=== PATIENT | male | born 1965 | race African-American/Black ===

== ENCOUNTER 2022-08-02 16:37 | Inpatient (IN) | payer OTHER ==
[2022-08-02 17:11] VITALS: BMI 24.4
[2022-08-02] MEDS ORDERED: NICOTINE 10 MG CARTRIDGE (INHALER) IH PRN (20:26)
[2022-08-02] MEDS ORDERED: BENZOCAINE/MENTHOL (CHLORASEPTIC ) LOZENGE MM PRN (20:26)
[2022-08-02] MEDS ORDERED: METHOCARBAMOL 500 MG TABLET PO PRN (20:26)
[2022-08-02] MEDS ORDERED: BISMUTH SUBSALICYLATE 524 MG/30 ML PO PRN (20:26)
[2022-08-02] MEDS ORDERED: NALOXONE HCL (KLOXXADO) 8 MG SPRAY NS PRN (20:26)
[2022-08-02] MEDS ORDERED: MAGNESIUM HYDROX 2400MG/30ML ORAL SUSPENSION 30 ML CUP PO PRN (20:26)
[2022-08-02] MEDS ORDERED: LOPERAMIDE HCL 2 MG CAPSULE PO PRN (20:26)
[2022-08-02] MEDS ORDERED: MAG HYDROX/AL HYDROX/SIMETH 30 ML UNIT-DOSE CUP PO PRN (20:26)
[2022-08-02] MEDS ORDERED: POLYETHYLENE GLYCOL (HEALTHYLAX) 3350 17 GM PACKET PO PRN (20:26)
[2022-08-02] MEDS ORDERED: IBUPROFEN 600 MG TABLET (FP) PO PRN (20:26)
[2022-08-02] MEDS ORDERED: ACETAMINOPHEN 325 MG TABLET (FP) PO PRN ×2 (20:26)
[2022-08-02] MEDS ORDERED: IBUPROFEN 400 MG TABLET (FP) PO PRN (20:26)
[2022-08-02] MEDS ORDERED: DICYCLOMINE HCL 10 MG CAPSULE PO PRN (20:26)
[2022-08-02] MEDS ORDERED: ONDANSETRON *ODT* 4 MG TABLET SL PRN (20:26)
[2022-08-02] MEDS ORDERED: chlordiazePOXIDE HCL 25 MG CAPSULE PO PRN (20:29)
[2022-08-02] MEDS ORDERED: chlordiazePOXIDE HCL 25 MG CAPSULE ONE (22:42)
[2022-08-02] MEDS ORDERED: MELATONIN 5 MG TABLETS ONE (22:43)
[2022-08-02] MEDS: MELATONIN 5 MG TABLETS PO SCH (22:48)
[2022-08-03] MEDS ORDERED: chlordiazePOXIDE HCL 25 MG CAPSULE ONE (00:22)
[2022-08-03] MEDS: chlordiazePOXIDE HCL 25 MG CAPSULE PO SCH ×5 (00:27→22:32)
[2022-08-03] MEDS: THIAMINE HCL 100 MG TABLET (FP) PO SCH ×2 (00:28→22:32)
[2022-08-03] MEDS: PRENATAL VITAMINS W/ FOLIC ACID TABLET (FP) PO SCH (10:48)
[2022-08-03] MEDS: NICOTINE 14 MG/24 HOURS TOPICAL PATCH TD SCH (10:50)
[2022-08-03 11:06] LABS: BLOOD UREA NITROGEN 10.2 mg/dL (7-18); CALCIUM 8.5 mg/dL (8.5-10.1)
[2022-08-03 11:07] LABS: HEMATOCRIT 40.6 % (35.4-49); HEMOGLOBIN 13.5 GM/dL (11.7-16.9); MCH 32.6 pg (25.7-33.7); MCHC 33.3 g/dl (32.0-35.9); MEAN CELL VOLUME 97.9 fl (80-96); MEAN PLT VOLUME 7.9 fl (7.5-11.1); PLATELET COUNT 249 10^3/uL (134-434); RBC 4.15 M/mm3 (4.00-5.60); RDW 15.4 % (11.9-15.9); WHITE BLOOD COUNT 3.8 K/mm3 (4.0-10.0)
[2022-08-03 11:11] LABS: BILIRUBIN,TOTAL 0.5 mg/dL (0.2-1); TOT PROT 6.5 g/dl (6.4-8.2)
[2022-08-03] MEDS: MELATONIN 5 MG TABLETS PO SCH (22:32)
[2022-08-04] MEDS: chlordiazePOXIDE HCL 25 MG CAPSULE PO SCH ×4 (05:45→22:56)
[2022-08-04] MEDS: PRENATAL VITAMINS W/ FOLIC ACID TABLET (FP) PO SCH (10:35)
[2022-08-04] MEDS: NICOTINE 14 MG/24 HOURS TOPICAL PATCH TD SCH (10:36)
[2022-08-04] MEDS: THIAMINE HCL 100 MG TABLET (FP) PO SCH (22:55)
[2022-08-04] MEDS: MELATONIN 5 MG TABLETS PO SCH (22:55)
[2022-08-05] MEDS ORDERED: chlordiazePOXIDE HCL 10 MG CAPSULE PO PRN
[2022-08-05] MEDS: chlordiazePOXIDE HCL 10 MG CAPSULE PO SCH ×4 (05:42→23:01)
[2022-08-05] MEDS: PRENATAL VITAMINS W/ FOLIC ACID TABLET (FP) PO SCH (10:30)
[2022-08-05] MEDS: NICOTINE 14 MG/24 HOURS TOPICAL PATCH TD SCH (10:30)
[2022-08-05] MEDS: MELATONIN 5 MG TABLETS PO SCH ×2 (23:00→23:05)
[2022-08-05] MEDS: THIAMINE HCL 100 MG TABLET (FP) PO SCH ×2 (23:01→23:05)
[2022-08-05] MEDS: chlordiazePOXIDE HCL 25 MG CAPSULE PO SCH (23:08)
[2022-08-06] MEDS: chlordiazePOXIDE HCL 10 MG CAPSULE PO SCH ×2 (05:36→18:12)
[2022-08-06] MEDS: NICOTINE 14 MG/24 HOURS TOPICAL PATCH TD SCH (10:14)
[2022-08-06] MEDS: PRENATAL VITAMINS W/ FOLIC ACID TABLET (FP) PO SCH (10:14)
[2022-08-06] MEDS: THIAMINE HCL 100 MG TABLET (FP) PO SCH (22:44)
[2022-08-06] MEDS: MELATONIN 5 MG TABLETS PO SCH (22:44)
[2022-08-07] MEDS ORDERED: chlordiazePOXIDE HCL 10 MG CAPSULE PO ONE (05:00)
[2022-08-07 09:42] VITALS: RESP 18
[2022-08-07] MEDS: PRENATAL VITAMINS W/ FOLIC ACID TABLET (FP) PO SCH (11:05)
[2022-08-07] MEDS: NICOTINE 14 MG/24 HOURS TOPICAL PATCH TD SCH (11:05)
[2022-08-07 13:32] VITALS: BP 125/78; PULSE 88; TEMP 97.1
== END 2022-08-07 15:27 | disposition other institution (70) | DRG 774 ==
LOC: YASAS 16:37 → Y3N 23:20
PROVIDERS: ADMIT Allergy & Immunology; ATTEND Surgery
PROC: HZ2ZZZZ Detoxification Services for Substance Abuse Treatment (ICD-10-PCS; principal; 2022-08-02)
DX: F10.230 Alcohol dependence with withdrawal, uncomplicated (principal); F14.20 Cocaine dependence, uncomplicated; F12.20 Cannabis dependence, uncomplicated; E78.00 Pure hypercholesterolemia, unspecified; I10 Essential (primary) hypertension; E88.09 Other disorders of plasma-protein metabolism, not elsewhere classified; R73.9 Hyperglycemia, unspecified; R74.01 Elevation of levels of liver transaminase levels; Z87.891 Personal history of nicotine dependence; Z56.0 Unemployment, unspecified; Z59.00 Homelessness unspecified
CPT/HCPCS: 36415; 80053; 85027; 86780; C9803-CS; U0003; U0005

== ENCOUNTER 2022-08-07 15:14 | Inpatient (IN) | payer OTHER ==
[2022-08-07] MEDS ORDERED: IBUPROFEN 400 MG TABLET (FP) PO PRN (16:00)
[2022-08-07] MEDS ORDERED: guaiFENesin 600 MG TABLET.ER (FP) PO PRN (16:00)
[2022-08-07] MEDS ORDERED: NICOTINE 10 MG CARTRIDGE (INHALER) IH PRN (16:00)
[2022-08-07] MEDS ORDERED: ACETAMINOPHEN 325 MG TABLET (FP) PO PRN (16:00)
[2022-08-07] MEDS ORDERED: COLLOIDAL OATMEAL 1 BAR EACH TP PRN (16:00)
[2022-08-07] MEDS ORDERED: POLYETHYLENE GLYCOL (HEALTHYLAX) 3350 17 GM PACKET PO PRN (16:00)
[2022-08-07] MEDS ORDERED: NALOXONE HCL (KLOXXADO) 8 MG SPRAY NS PRN (16:00)
[2022-08-07] MEDS ORDERED: NICOTINE 14 MG/24 HOURS TOPICAL PATCH TD PRN (16:00)
[2022-08-07] MEDS ORDERED: BENZOCAINE/MENTHOL (CHLORASEPTIC ) LOZENGE MM PRN (16:00)
[2022-08-07] MEDS ORDERED: MAG HYDROX/AL HYDROX/SIMETH 30 ML UNIT-DOSE CUP PO PRN (16:00)
[2022-08-07] MEDS ORDERED: BENZONATATE 200 MG CAPSULE PO PRN (16:00)
[2022-08-07] MEDS ORDERED: NICOTINE POLACRILEX 4 MG GUM BUC PRN (16:00)
[2022-08-07] MEDS ORDERED: LOPERAMIDE HCL 2 MG CAPSULE PO PRN (16:00)
[2022-08-07] MEDS ORDERED: MAGNESIUM HYDROX 2400MG/30ML ORAL SUSPENSION 30 ML CUP PO PRN (16:00)
[2022-08-07] MEDS ORDERED: NALOXONE HCL 0.4 MG/ML VIAL IVPUSH PRN (16:00)
[2022-08-07] MEDS: MELATONIN 5 MG TABLETS PO SCH (21:39)
[2022-08-07] MEDS: THIAMINE HCL 100 MG TABLET (FP) PO SCH (21:39)
[2022-08-07] MEDS: hydrOXYzine PAMOATE 25 MG CAPSULE (FP) PO PRN (21:40)
[2022-08-08] MEDS: PRENATAL VITAMINS W/ FOLIC ACID TABLET (FP) PO SCH (10:26)
[2022-08-08] MEDS: hydrOXYzine PAMOATE 25 MG CAPSULE (FP) PO PRN (21:17)
[2022-08-08] MEDS: THIAMINE HCL 100 MG TABLET (FP) PO SCH (21:17)
[2022-08-08] MEDS: MELATONIN 5 MG TABLETS PO SCH (21:17)
[2022-08-08] MEDS: METHOCARBAMOL 500 MG TABLET PO PRN (21:18)
[2022-08-09] MEDS: PRENATAL VITAMINS W/ FOLIC ACID TABLET (FP) PO SCH (10:20)
[2022-08-09] MEDS: METHOCARBAMOL 500 MG TABLET PO PRN (21:07)
[2022-08-09] MEDS: MELATONIN 5 MG TABLETS PO SCH (21:07)
[2022-08-09] MEDS: hydrOXYzine PAMOATE 25 MG CAPSULE (FP) PO PRN (21:07)
[2022-08-09] MEDS: THIAMINE HCL 100 MG TABLET (FP) PO SCH (21:07)
[2022-08-10] MEDS: PRENATAL VITAMINS W/ FOLIC ACID TABLET (FP) PO SCH (09:33)
[2022-08-10] MEDS: THIAMINE HCL 100 MG TABLET (FP) PO SCH (21:40)
[2022-08-10] MEDS: MELATONIN 5 MG TABLETS PO SCH (21:40)
[2022-08-11] MEDS: PRENATAL VITAMINS W/ FOLIC ACID TABLET (FP) PO SCH (10:10)
[2022-08-11] MEDS: METHOCARBAMOL 500 MG TABLET PO PRN (21:01)
[2022-08-11] MEDS: MELATONIN 5 MG TABLETS PO SCH (21:01)
[2022-08-11] MEDS: THIAMINE HCL 100 MG TABLET (FP) PO SCH (21:01)
[2022-08-11] MEDS: hydrOXYzine PAMOATE 25 MG CAPSULE (FP) PO PRN (21:01)
[2022-08-12] MEDS: PRENATAL VITAMINS W/ FOLIC ACID TABLET (FP) PO SCH (10:14)
[2022-08-12] MEDS: THIAMINE HCL 100 MG TABLET (FP) PO SCH (21:26)
[2022-08-12] MEDS: MELATONIN 5 MG TABLETS PO SCH (21:26)
[2022-08-13] MEDS: PRENATAL VITAMINS W/ FOLIC ACID TABLET (FP) PO SCH (09:36)
[2022-08-13] MEDS: MELATONIN 5 MG TABLETS PO SCH (21:29)
[2022-08-13] MEDS: THIAMINE HCL 100 MG TABLET (FP) PO SCH (21:29)
[2022-08-14] MEDS: PRENATAL VITAMINS W/ FOLIC ACID TABLET (FP) PO SCH (10:39)
[2022-08-14] MEDS: THIAMINE HCL 100 MG TABLET (FP) PO SCH (21:10)
[2022-08-14] MEDS: MELATONIN 5 MG TABLETS PO SCH (21:10)
[2022-08-14] MEDS: hydrOXYzine PAMOATE 25 MG CAPSULE (FP) PO PRN (21:11)
[2022-08-15] MEDS: PRENATAL VITAMINS W/ FOLIC ACID TABLET (FP) PO SCH (10:48)
[2022-08-15] MEDS: MELATONIN 5 MG TABLETS PO SCH (21:34)
[2022-08-15] MEDS: THIAMINE HCL 100 MG TABLET (FP) PO SCH (21:34)
[2022-08-16] MEDS: PRENATAL VITAMINS W/ FOLIC ACID TABLET (FP) PO SCH (09:45)
[2022-08-16] MEDS: IBUPROFEN 600 MG TABLET (FP) PO PRN (18:33)
[2022-08-16] MEDS: THIAMINE HCL 100 MG TABLET (FP) PO SCH (21:54)
[2022-08-16] MEDS: MELATONIN 5 MG TABLETS PO SCH (21:54)
[2022-08-17] MEDS: PRENATAL VITAMINS W/ FOLIC ACID TABLET (FP) PO SCH (10:23)
[2022-08-17] MEDS: MELATONIN 5 MG TABLETS PO SCH (22:00)
[2022-08-17] MEDS: THIAMINE HCL 100 MG TABLET (FP) PO SCH (22:00)
[2022-08-18] MEDS: PRENATAL VITAMINS W/ FOLIC ACID TABLET (FP) PO SCH (10:06)
[2022-08-18] MEDS: THIAMINE HCL 100 MG TABLET (FP) PO SCH (22:06)
[2022-08-18] MEDS: MELATONIN 5 MG TABLETS PO SCH (22:06)
[2022-08-19] MEDS: PRENATAL VITAMINS W/ FOLIC ACID TABLET (FP) PO SCH (10:13)
[2022-08-19] MEDS: MELATONIN 5 MG TABLETS PO SCH (22:57)
[2022-08-19] MEDS: THIAMINE HCL 100 MG TABLET (FP) PO SCH (22:57)
[2022-08-20] MEDS: PRENATAL VITAMINS W/ FOLIC ACID TABLET (FP) PO SCH (10:18)
[2022-08-20] MEDS: MELATONIN 5 MG TABLETS PO SCH (21:54)
[2022-08-20] MEDS: THIAMINE HCL 100 MG TABLET (FP) PO SCH (21:54)
[2022-08-21] MEDS: PRENATAL VITAMINS W/ FOLIC ACID TABLET (FP) PO SCH (10:50)
[2022-08-21] MEDS: THIAMINE HCL 100 MG TABLET (FP) PO SCH (21:27)
[2022-08-21] MEDS: MELATONIN 5 MG TABLETS PO SCH (21:28)
[2022-08-22] MEDS: PRENATAL VITAMINS W/ FOLIC ACID TABLET (FP) PO SCH (11:02)
[2022-08-22] MEDS: METHYL SALICYLATE/MENTHOL OINT 30 GM TUBE TP PRN (11:02)
[2022-08-22] MEDS: MELATONIN 5 MG TABLETS PO SCH (21:25)
[2022-08-22] MEDS: THIAMINE HCL 100 MG TABLET (FP) PO SCH (21:25)
[2022-08-23] MEDS: PRENATAL VITAMINS W/ FOLIC ACID TABLET (FP) PO SCH (10:39)
[2022-08-23] MEDS: METHYL SALICYLATE/MENTHOL OINT 30 GM TUBE TP PRN (10:39)
[2022-08-23] MEDS: IBUPROFEN 600 MG TABLET (FP) PO PRN (10:40)
[2022-08-23] MEDS: MELATONIN 5 MG TABLETS PO SCH (21:28)
[2022-08-23] MEDS: THIAMINE HCL 100 MG TABLET (FP) PO SCH (21:28)
[2022-08-24] MEDS: PRENATAL VITAMINS W/ FOLIC ACID TABLET (FP) PO SCH (10:23)
[2022-08-24] MEDS: MELATONIN 5 MG TABLETS PO SCH (21:41)
[2022-08-24] MEDS: THIAMINE HCL 100 MG TABLET (FP) PO SCH (21:41)
[2022-08-25] MEDS: PRENATAL VITAMINS W/ FOLIC ACID TABLET (FP) PO SCH (09:57)
[2022-08-25] MEDS: THIAMINE HCL 100 MG TABLET (FP) PO SCH (22:34)
[2022-08-25] MEDS: MELATONIN 5 MG TABLETS PO SCH (22:34)
[2022-08-26] MEDS: PRENATAL VITAMINS W/ FOLIC ACID TABLET (FP) PO SCH (10:48)
[2022-08-26] MEDS: THIAMINE HCL 100 MG TABLET (FP) PO SCH (22:33)
[2022-08-26] MEDS: MELATONIN 5 MG TABLETS PO SCH (22:33)
[2022-08-27] MEDS: PRENATAL VITAMINS W/ FOLIC ACID TABLET (FP) PO SCH (11:09)
[2022-08-27] MEDS: THIAMINE HCL 100 MG TABLET (FP) PO SCH (21:23)
[2022-08-27] MEDS: MELATONIN 5 MG TABLETS PO SCH (21:24)
[2022-08-28] MEDS: PRENATAL VITAMINS W/ FOLIC ACID TABLET (FP) PO SCH (10:20)
[2022-08-28] MEDS: IBUPROFEN 600 MG TABLET (FP) PO PRN (10:21)
[2022-08-28] MEDS: PANTOPRAZOLE 20 MG TABLET PO PRN (14:40)
[2022-08-28] MEDS: THIAMINE HCL 100 MG TABLET (FP) PO SCH (21:30)
[2022-08-28] MEDS: MELATONIN 5 MG TABLETS PO SCH (21:30)
[2022-08-29] MEDS: PRENATAL VITAMINS W/ FOLIC ACID TABLET (FP) PO SCH (09:20)
[2022-08-29] MEDS: PANTOPRAZOLE 20 MG TABLET PO PRN (09:20)
[2022-08-29] MEDS: THIAMINE HCL 100 MG TABLET (FP) PO SCH (21:30)
[2022-08-29] MEDS: MELATONIN 5 MG TABLETS PO SCH (21:30)
[2022-08-30] MEDS: PRENATAL VITAMINS W/ FOLIC ACID TABLET (FP) PO SCH (09:58)
[2022-08-30] MEDS: PANTOPRAZOLE 20 MG TABLET PO PRN (09:58)
[2022-08-30] MEDS: MELATONIN 5 MG TABLETS PO SCH (21:37)
[2022-08-30] MEDS: THIAMINE HCL 100 MG TABLET (FP) PO SCH (21:37)
[2022-08-31] MEDS: PRENATAL VITAMINS W/ FOLIC ACID TABLET (FP) PO SCH (09:47)
[2022-08-31] MEDS: IBUPROFEN 600 MG TABLET (FP) PO PRN (16:39)
[2022-08-31] MEDS: MELATONIN 5 MG TABLETS PO SCH (21:31)
[2022-08-31] MEDS: THIAMINE HCL 100 MG TABLET (FP) PO SCH (21:31)
[2022-09-01] MEDS: PRENATAL VITAMINS W/ FOLIC ACID TABLET (FP) PO SCH (10:20)
[2022-09-01] MEDS: PANTOPRAZOLE 20 MG TABLET PO PRN (10:21)
[2022-09-01] MEDS: IBUPROFEN 600 MG TABLET (FP) PO PRN (12:12)
[2022-09-01] MEDS: THIAMINE HCL 100 MG TABLET (FP) PO SCH (22:28)
[2022-09-01] MEDS: MELATONIN 5 MG TABLETS PO SCH (22:28)
[2022-09-02] MEDS: PRENATAL VITAMINS W/ FOLIC ACID TABLET (FP) PO SCH (10:47)
[2022-09-02] MEDS: THIAMINE HCL 100 MG TABLET (FP) PO SCH (22:22)
[2022-09-02] MEDS: MELATONIN 5 MG TABLETS PO SCH (22:22)
[2022-09-03 07:17] VITALS: BP 154/89; PULSE 74; RESP 17; TEMP 97.1
[2022-09-03] MEDS: PANTOPRAZOLE 20 MG TABLET PO PRN (09:20)
[2022-09-03] MEDS: PRENATAL VITAMINS W/ FOLIC ACID TABLET (FP) PO SCH (09:20)
== END 2022-09-03 09:26 | disposition home or self-care (01) | DRG 772 ==
LOC: YASAS 15:14 → Y3W 15:16
PROVIDERS: ADMIT Allergy & Immunology; ATTEND Psychiatry & Neurology Pain Medicine
PROC: HZ42ZZZ Group Counseling for Substance Abuse Treatment, Cognitive-Behavioral (ICD-10-PCS; principal; 2022-08-07)
DX: F10.20 Alcohol dependence, uncomplicated (principal); F14.20 Cocaine dependence, uncomplicated; F12.20 Cannabis dependence, uncomplicated; F17.210 Nicotine dependence, cigarettes, uncomplicated; E78.5 Hyperlipidemia, unspecified; I10 Essential (primary) hypertension
CPT/HCPCS: 36415; 86803

== ENCOUNTER 2023-03-18 11:06 | Inpatient (IN) | payer OTHER ==
[2023-03-18] MEDS ORDERED: BISMUTH SUBSALICYLATE 262 MG/15 ML BTL PO PRN (13:36)
[2023-03-18] MEDS ORDERED: MAGNESIUM HYDROX 2400MG/30ML ORAL SUSPENSION 30 ML CUP PO PRN (13:36)
[2023-03-18] MEDS ORDERED: NALOXONE HCL 0.4 MG/ML VIAL IM PRN (13:36)
[2023-03-18] MEDS ORDERED: POLYETHYLENE GLYCOL (HEALTHYLAX) 3350 17 GM PACKET PO PRN (13:36)
[2023-03-18] MEDS ORDERED: ACETAMINOPHEN 325 MG TABLET (FP) PO PRN (13:36)
[2023-03-18] MEDS ORDERED: BENZOCAINE/MENTHOL (CHLORASEPTIC ) LOZENGE MM PRN (13:36)
[2023-03-18] MEDS ORDERED: IBUPROFEN 400 MG TABLET (FP) PO PRN (13:36)
[2023-03-18] MEDS ORDERED: BENZONATATE 200 MG CAPSULE PO PRN (13:36)
[2023-03-18] MEDS ORDERED: guaiFENesin 600 MG TABLET.ER (FP) PO PRN (13:36)
[2023-03-18] MEDS ORDERED: LOPERAMIDE HCL 2 MG CAPSULE PO PRN (13:36)
[2023-03-18] MEDS ORDERED: ONDANSETRON *ODT* 4 MG TABLET SL PRN (13:36)
[2023-03-18] MEDS ORDERED: NALOXONE HCL (KLOXXADO) 8 MG SPRAY NS PRN (13:36)
[2023-03-18] MEDS ORDERED: chlordiazePOXIDE HCL 25 MG CAPSULE PO PRN (13:43)
[2023-03-18] MEDS: chlordiazePOXIDE HCL 25 MG CAPSULE PO SCH ×2 (17:42→22:09)
[2023-03-18] MEDS: MELATONIN 5 MG TABLETS PO SCH (22:09)
[2023-03-18] MEDS: THIAMINE HCL 100 MG TABLET (FP) PO SCH (22:09)
[2023-03-19] MEDS: chlordiazePOXIDE HCL 25 MG CAPSULE PO SCH ×4 (05:11→22:07)
[2023-03-19] MEDS: IBUPROFEN 600 MG TABLET (FP) PO PRN (05:14)
[2023-03-19] MEDS: PRENATAL VITAMINS W/ FOLIC ACID TABLET (FP) PO SCH (10:12)
[2023-03-19 11:47] LABS: HEMATOCRIT 38.9 % (35.4-49); MCH 31.1 pg (25.7-33.7); MCHC 33.5 g/dl (32.0-35.9); MEAN PLT VOLUME 8.1 fl (7.5-11.1); PLATELET COUNT 268 10^3/uL (134-434); RBC 4.18 M/mm3 (4.00-5.60); RDW 16.9 % (11.9-15.9); WHITE BLOOD COUNT 3.6 K/mm3 (4.0-10.0)
[2023-03-19 11:53] LABS: CHLORIDE 105 mmol/L (98-107); SODIUM 141 mmol/L (136-145)
[2023-03-19 12:18] LABS: ALBUMIN 2.8 g/dl (3.4-5.0); BLOOD UREA NITROGEN 9.9 mg/dL (7-18); CALCIUM 8.5 mg/dL (8.5-10.1)
[2023-03-19 12:19] LABS: ANION GAP 9 mmol/L (4-13); CO2 27 mmol/L (21-32); GLUCOSE,RANDOM 93 mg/dL (74-106)
[2023-03-19 12:21] LABS: CREATININE 0.9 mg/dL (0.55-1.3); SGPT/ALT 41 U/L (13-61)
[2023-03-19 12:22] LABS: SGOT/AST 37 U/L (15-37)
[2023-03-19 12:23] LABS: BILIRUBIN,TOTAL 0.3 mg/dL (0.2-1)
[2023-03-19 12:24] LABS: ALK PHOS 73 U/L (45-117)
[2023-03-19] MEDS: amLODIPine BESYLATE 2.5 MG TABLET (FP) PO SCH (14:32)
[2023-03-19] MEDS: MAG HYDROX/AL HYDROX/SIMETH 30 ML UNIT-DOSE CUP PO PRN (14:32)
[2023-03-19] MEDS: MELATONIN 5 MG TABLETS PO SCH (22:06)
[2023-03-19] MEDS: THIAMINE HCL 100 MG TABLET (FP) PO SCH (22:06)
[2023-03-20] MEDS: chlordiazePOXIDE HCL 25 MG CAPSULE PO SCH ×4 (06:00→22:48)
[2023-03-20] MEDS: hydrOXYzine PAMOATE 25 MG CAPSULE (FP) PO PRN ×2 (10:39→22:48)
[2023-03-20] MEDS: METHOCARBAMOL 500 MG TABLET PO PRN ×2 (10:39→22:48)
[2023-03-20] MEDS: amLODIPine BESYLATE 2.5 MG TABLET (FP) PO SCH (10:39)
[2023-03-20] MEDS: PRENATAL VITAMINS W/ FOLIC ACID TABLET (FP) PO SCH (10:39)
[2023-03-20] MEDS: IBUPROFEN 600 MG TABLET (FP) PO PRN (11:35)
[2023-03-20] MEDS: THIAMINE HCL 100 MG TABLET (FP) PO SCH (22:48)
[2023-03-20] MEDS: MAG HYDROX/AL HYDROX/SIMETH 30 ML UNIT-DOSE CUP PO PRN (22:49)
[2023-03-20] MEDS: MELATONIN 5 MG TABLETS PO SCH (22:49)
[2023-03-21] MEDS ORDERED: chlordiazePOXIDE HCL 10 MG CAPSULE PO PRN
[2023-03-21] MEDS: chlordiazePOXIDE HCL 10 MG CAPSULE PO SCH ×4 (05:50→22:38)
[2023-03-21] MEDS ORDERED: amLODIPine BESYLATE 5 MG TABLET (FP) PO SCH (10:00)
[2023-03-21] MEDS: hydrOXYzine PAMOATE 25 MG CAPSULE (FP) PO PRN ×2 (10:29→17:30)
[2023-03-21] MEDS: PRENATAL VITAMINS W/ FOLIC ACID TABLET (FP) PO SCH (10:29)
[2023-03-21] MEDS: METHOCARBAMOL 500 MG TABLET PO PRN (10:29)
[2023-03-21] MEDS ORDERED: ACETAMINOPHEN 325 MG TABLET (FP) PO PRN (12:28)
[2023-03-21] MEDS ORDERED: METOPROLOL TARTRATE 25 MG TABLET (FP) PO ONE (16:00)
[2023-03-21] MEDS: IBUPROFEN 600 MG TABLET (FP) PO PRN (17:31)
[2023-03-21] MEDS: THIAMINE HCL 100 MG TABLET (FP) PO SCH (22:37)
[2023-03-21] MEDS: MELATONIN 5 MG TABLETS PO SCH (22:38)
[2023-03-22] MEDS: chlordiazePOXIDE HCL 10 MG CAPSULE PO SCH ×2 (05:09→17:22)
[2023-03-22] MEDS: METHOCARBAMOL 500 MG TABLET PO PRN (10:50)
[2023-03-22] MEDS: amLODIPine BESYLATE 10 MG TABLET (FP) PO SCH (10:50)
[2023-03-22] MEDS: PRENATAL VITAMINS W/ FOLIC ACID TABLET (FP) PO SCH (10:50)
[2023-03-22] MEDS: hydrOXYzine PAMOATE 25 MG CAPSULE (FP) PO PRN (10:50)
[2023-03-22] MEDS: MELATONIN 5 MG TABLETS PO SCH (22:51)
[2023-03-22] MEDS: THIAMINE HCL 100 MG TABLET (FP) PO SCH (22:51)
[2023-03-23] MEDS ORDERED: chlordiazePOXIDE HCL 10 MG CAPSULE PO ONE (05:00)
[2023-03-23 06:51] VITALS: RESP 19
[2023-03-23 09:18] VITALS: BP 128/81; PULSE 98; TEMP 98
[2023-03-23] MEDS: amLODIPine BESYLATE 10 MG TABLET (FP) PO SCH (09:36)
[2023-03-23] MEDS: PRENATAL VITAMINS W/ FOLIC ACID TABLET (FP) PO SCH (09:36)
[2023-03-23] MEDS: IBUPROFEN 600 MG TABLET (FP) PO PRN (09:39)
== END 2023-03-23 11:25 | disposition home or self-care (01) | DRG 774 ==
LOC: YASAS 11:06 → Y6N 14:47
PROVIDERS: ADMIT Allergy & Immunology; ATTEND Surgery
PROC: HZ2ZZZZ Detoxification Services for Substance Abuse Treatment (ICD-10-PCS; principal; 2023-03-18)
DX: F10.230 Alcohol dependence with withdrawal, uncomplicated (principal); F14.20 Cocaine dependence, uncomplicated; I10 Essential (primary) hypertension; K21.9 Gastro-esophageal reflux disease without esophagitis; Z87.891 Personal history of nicotine dependence
CPT/HCPCS: 36415; 80053; 80307; 85027; 86780; 87635; 87811; Q0162

== ENCOUNTER 2023-05-23 14:40 | Inpatient (IN) | payer OTHER ==
[2023-05-23 15:26] VITALS: BMI 33.2
[2023-05-23] MEDS ORDERED: BENZOCAINE/MENTHOL (CHLORASEPTIC ) LOZENGE MM PRN (16:14)
[2023-05-23] MEDS ORDERED: BENZONATATE 200 MG CAPSULE PO PRN (16:14)
[2023-05-23] MEDS ORDERED: IBUPROFEN 600 MG TABLET (FP) PO PRN (16:14)
[2023-05-23] MEDS ORDERED: NALOXONE HCL (KLOXXADO) 8 MG SPRAY NS PRN (16:14)
[2023-05-23] MEDS ORDERED: ACETAMINOPHEN 325 MG TABLET (FP) PO PRN (16:14)
[2023-05-23] MEDS ORDERED: IBUPROFEN 400 MG TABLET (FP) PO PRN (16:14)
[2023-05-23] MEDS ORDERED: ONDANSETRON *ODT* 4 MG TABLET SL PRN (16:14)
[2023-05-23] MEDS ORDERED: MAGNESIUM HYDROX 2400MG/30ML ORAL SUSPENSION 30 ML CUP PO PRN (16:14)
[2023-05-23] MEDS ORDERED: METHOCARBAMOL 500 MG TABLET PO PRN (16:14)
[2023-05-23] MEDS ORDERED: guaiFENesin 600 MG TABLET.ER (FP) PO PRN (16:14)
[2023-05-23] MEDS ORDERED: NALOXONE HCL 0.4 MG/ML VIAL IM PRN (16:14)
[2023-05-23] MEDS ORDERED: POLYETHYLENE GLYCOL (HEALTHYLAX) 3350 17 GM PACKET PO PRN (16:14)
[2023-05-23] MEDS ORDERED: BISMUTH SUBSALICYLATE 524 MG/30 ML PO PRN (16:14)
[2023-05-23] MEDS ORDERED: MAG HYDROX/AL HYDROX/SIMETH 30 ML UNIT-DOSE CUP PO PRN (16:14)
[2023-05-23] MEDS ORDERED: LOPERAMIDE HCL 2 MG CAPSULE PO PRN (16:14)
[2023-05-23] MEDS: MELATONIN 5 MG TABLETS PO SCH (22:27)
[2023-05-23] MEDS: hydrOXYzine PAMOATE 25 MG CAPSULE (FP) PO PRN (22:28)
[2023-05-23] MEDS: THIAMINE HCL 100 MG TABLET (FP) PO SCH (22:28)
[2023-05-24] MEDS ORDERED: chlordiazePOXIDE HCL 25 MG CAPSULE PO PRN (09:30)
[2023-05-24] MEDS: chlordiazePOXIDE HCL 25 MG CAPSULE PO SCH ×3 (10:18→22:46)
[2023-05-24] MEDS: PRENATAL VITAMINS W/ FOLIC ACID TABLET (FP) PO SCH (10:19)
[2023-05-24 10:32] LABS: HEMATOCRIT 39.2 % (35.4-49); HEMOGLOBIN 12.9 GM/dL (11.7-16.9); MCH 30.7 pg (25.7-33.7); MEAN CELL VOLUME 93.1 fl (80-96); PLATELET COUNT 275 10^3/uL (134-434); RBC 4.21 M/mm3 (4.00-5.60); RDW 15.7 % (11.9-15.9); WHITE BLOOD COUNT 5.8 K/mm3 (4.0-10.0)
[2023-05-24 11:20] LABS: CHLORIDE 105 mmol/L (98-107); POTASSIUM 4.6 mmol/L (3.5-5.1); SODIUM 139 mmol/L (136-145)
[2023-05-24 11:30] LABS: CALCIUM 8.7 mg/dL (8.5-10.1)
[2023-05-24 11:32] LABS: ALBUMIN 3.2 g/dl (3.4-5.0); ANION GAP 5 mmol/L (4-13); BLOOD UREA NITROGEN 16.9 mg/dL (7-18); CO2 29 mmol/L (21-32); GLUCOSE,RANDOM 92 mg/dL (74-106)
[2023-05-24 11:33] LABS: CREATININE 0.9 mg/dL (0.55-1.3); SGOT/AST 26 U/L (15-37)
[2023-05-24 11:34] LABS: SGPT/ALT 35 U/L (13-61)
[2023-05-24 11:35] LABS: BILIRUBIN,TOTAL 0.2 mg/dL (0.2-1)
[2023-05-24 11:36] LABS: ALK PHOS 70 U/L (45-117)
[2023-05-24] MEDS: THIAMINE HCL 100 MG TABLET (FP) PO SCH (22:46)
[2023-05-24] MEDS: MELATONIN 5 MG TABLETS PO SCH (22:46)
[2023-05-25] MEDS: chlordiazePOXIDE HCL 25 MG CAPSULE PO SCH ×2 (05:27→10:49)
[2023-05-25 07:04] VITALS: TEMP 97.7
[2023-05-25 09:14] VITALS: BP 123/81; PULSE 86; RESP 18
[2023-05-25] MEDS: PRENATAL VITAMINS W/ FOLIC ACID TABLET (FP) PO SCH (10:54)
[2023-05-25] MEDS: hydrOXYzine PAMOATE 25 MG CAPSULE (FP) PO PRN (10:55)
[2023-05-26] MEDS ORDERED: chlordiazePOXIDE HCL 25 MG CAPSULE PO SCH (05:00)
[2023-05-27] MEDS ORDERED: chlordiazePOXIDE HCL 10 MG CAPSULE PO PRN
[2023-05-27] MEDS ORDERED: chlordiazePOXIDE HCL 10 MG CAPSULE PO SCH (05:00)
[2023-05-28] MEDS ORDERED: chlordiazePOXIDE HCL 10 MG CAPSULE PO SCH (05:00)
[2023-05-29] MEDS ORDERED: chlordiazePOXIDE HCL 10 MG CAPSULE PO ONE (05:00)
== END 2023-05-25 12:13 | disposition left against medical advice (07) | DRG 770 ==
LOC: YASAS 14:40 → Y6N 17:43
PROVIDERS: ADMIT Allergy & Immunology; ATTEND Surgery
PROC: HZ2ZZZZ Detoxification Services for Substance Abuse Treatment (ICD-10-PCS; principal; 2023-05-23)
DX: F10.230 Alcohol dependence with withdrawal, uncomplicated (principal); F14.20 Cocaine dependence, uncomplicated; F12.20 Cannabis dependence, uncomplicated; E78.00 Pure hypercholesterolemia, unspecified; I10 Essential (primary) hypertension; K21.9 Gastro-esophageal reflux disease without esophagitis; Z87.891 Personal history of nicotine dependence; Z99.89 Dependence on other enabling machines and devices; Z56.0 Unemployment, unspecified; Z59.00 Homelessness unspecified
CPT/HCPCS: 36415; 80053; 80307; 85027; 86780; 87635